=== PATIENT | male | born 1975 | race American Indian/Alaskan Native ===

== ENCOUNTER 2019-03-11 09:43 | Emergency (ER) | payer OTHER ==
[2019-03-11 09:57] VITALS: BP 153/102
[2019-03-11] MEDS ORDERED: NORCO 5/325 PO ONE (10:48)
[2019-03-11] MEDS ORDERED: IBUPROFEN PO ONE (10:48)
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
== END 2019-03-11 11:44 | disposition home or self-care (01) ==
LOC: ED 09:43
DX: S16.1XXA Strain of muscle, fascia and tendon at neck level, initial encounter (principal); S80.02XA Contusion of left knee, initial encounter; F17.200 Nicotine dependence, unspecified, uncomplicated; Z79.899 Other long term (current) drug therapy; V49.40XA Driver injured in collision with unspecified motor vehicles in traffic accident, initial encounter; Y93.89 Activity, other specified; Y92.488 Other paved roadways as the place of occurrence of the external cause; Y99.8 Other external cause status
CPT/HCPCS: 99283

== ENCOUNTER 2020-05-16 12:47 | Outpatient (CLI) | payer OTHER ==
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
--- NOTE | 2020-05-16 15:16 | XRay Report ---
Lumbar spine 3 views INDICATION: Low back pain following injury IMPRESSION: No fracture or subluxation of the lumbar spine is identified. Minimal facet arthropathy a t L5-S1. There is slight neural foraminal narrowing at L5-S1. Signer Name: Caden Valero MD Signed: 05/16/2020 3:11 PM Workstation Name: [id number]
== END 2020-05-16 12:48 | disposition home or self-care (01) ==
LOC: XRAY 12:47
PROVIDERS: ATTEND Internal Medicine
DX: M19.072 Primary osteoarthritis, left ankle and foot (principal); M47.817 Spondylosis without myelopathy or radiculopathy, lumbosacral region; M48.07 Spinal stenosis, lumbosacral region; M77.32 Calcaneal spur, left foot
CPT/HCPCS: 72100